=== PATIENT | male | born 1970 | race Caucasian/White ===

== ENCOUNTER → 2017-05-26 | Outpatient (CLI) | payer OTHER ==
[~2017-05-26] MED LIST: GADOBUTROL 10 ML VIAL IVP ONE
== END ==
LOC: FIMAGING 18:07
PROVIDERS: ATTEND Family Medicine Sports Medicine
DX: S06.0X0D Concussion without loss of consciousness, subsequent encounter (principal); H53.9 Unspecified visual disturbance; H51.11 Convergence insufficiency; M62.838 Other muscle spasm; M99.82 Other biomechanical lesions of thoracic region
CPT/HCPCS: A9585